=== PATIENT | male | born 1955 | race Two or more races ===

== ENCOUNTER → 2020-06-12 | Emergency (ER) | payer SELFPAY ==
[~2020-06-12] VITALS: Ht 170.2 cm; Wt 88.0 kg
[2020-06-12 20:17] VITALS: BP 123/69
== END | disposition home or self-care (01) ==
LOC: ER 19:08
DX: T83.011A Breakdown (mechanical) of indwelling urethral catheter, initial encounter (principal); N40.0 Benign prostatic hyperplasia without lower urinary tract symptoms; Y83.8 Other surgical procedures as the cause of abnormal reaction of the patient, or of later complication, without mention of misadventure at the time of the procedure; Y92.89 Other specified places as the place of occurrence of the external cause
CPT/HCPCS: 51702